=== PATIENT | male | born 1975 | race Caucasian/White ===

== ENCOUNTER 2016-08-02 07:06 | Emergency (ER) | payer BC ==
[2016-08-02 07:26] VITALS: BP 157/93; PULSE 82; RESP 18; TEMP 98.2; O2SAT 96
--- NOTE | 2016-08-02 07:32 | UCPHY ---
H & P Time Seen by Provider: 08/02/16 07:17 Patient Type: New HPI/ROS: 40-year-old male presents complaining of right knee pain for approximately 1 and half days. Has been under the weather for the last 1-2 weeks and on Sunday went for a longer hike. He does not recall injuring it on that day. He also recalls breaking very suddenly prior to his knee bothering him. Otherwise he does not recall any trauma to his knee. He has no history of arthritis he has no history of gout. He denies fevers or chills. Review of systems General no fever no chills no weakness HEENT no eye pain no eye discharge. No eye redness, no sore throat Respiratory no cough, no shortness of breath Cardiac no chest pain, no peripheral edema GI no abdominal pain, no diarrhea, no constipation, no nausea, no vomiting no flank pain, no hematuria, no dysuria Musculoskeletal no myalgias, positive joint pain Heme no easy bruising, no easy bleeding Endo no polyuria, no polydipsia Skin no rashes, no pruritus Neuro no syncope, no dizziness, no headaches Psych is no suicidal ideation, no homicidal ideation Past Medical/Surgical History: Hypertension Social History: Alcohol socially, denies drug use Smoking Status: Never smoked Physical Exam: 40-year-old male Alert and oriented in no acute distress nontoxic appearance, afebrile Atraumatic normocephalic Neck no JVD Lungs clear to auscultation, no respiratory distress Heart regular rate and rhythm Extremities no cyanosis clubbing edema Right knee-unable to fully extend, flexion able to flex past 90, no erythema no increased warmth Positive tenderness at anterior tibial line, no patellar ligament tenderness No laxity No calf tenderness, no calf swelling Constitutional: Initial Vital Signs Temperature (C) 36.8 C 08/02/16 07:20 Heart Rate 82 08/02/16 07:20 Respiratory Rate 18 08/02/16 07:20 Blood Pressure 157/93 H 08/02/16 07:20 O2 Sat (%) 96 08/02/16 07:20 O2 Delivery Mode Room Air Allergies/Adverse Reactions: No Known Allergies Allergy (Unverified 08/02/16 07:19) Home Medications: Medication Instructions Recorded Atenolol 08/02/16 Triamterene 03/08/17 Medical Decision Making ED Course/Re-evaluation: Patient seen and evaluated for right knee pain of approximately 1.5 days duration No gross trauma Right knee [id number] Differential diagnosis considered Knee sprain, knee arthritis, gout, internal derangement of the knee, DVT Impression Right knee sprain Unlikely arthritis secondary to no increased warmth and no erythema Unlikely DVT secondary to no calf tenderness and no calf swelling as well as no risk factors Plan Knee brace Ibuprofen Follow up with Ortho if not improving - Data Points Medications Given: Discontinued Medications Ibuprofen (Motrin) 800 mg PO EDNOW ONE Stop: 08/02/16 07:36 Last Admin: 08/02/16 08:02 Dose: 800 mg Departure - Departure Disposition: Home, Routine, Self-Care Clinical Impression: Right knee sprain Condition: Good Instructions: Knee Sprain (ED) Referrals: NONE *PRIMARY CARE P,. [Primary Care Provider] - As per Instructions Ervin Archibald MD [Medical Doctor] - As per Instructions - PQRS PQRS Measurement: na
[2016-08-02] MEDS ORDERED: IBUPROFEN 800 MG TAB PO ONE (07:35)
[2016-08-02] MEDS ORDERED: IBUPROFEN 200 MG TAB PO ONE (07:58)
[2016-08-02] MEDS ORDERED: IBUPROFEN 600 MG TAB PO ONE (07:59)
== END 2016-08-02 08:32 | disposition home or self-care (01) ==
LOC: CED 07:06
DX: S83.91XA Sprain of unspecified site of right knee, initial encounter (principal); X50.0XXA Overexertion from strenuous movement or load, initial encounter; Y93.01 Activity, walking, marching and hiking; I10 Essential (primary) hypertension
CPT/HCPCS: 73564-PO; 99203-PO; G0463-PO; L1810

== ENCOUNTER 2016-10-13 11:33 | Emergency (ER) | payer BC | END 2016-10-13 11:35 | disposition left against medical advice (07) | LOC: CED 11:33 | DX: Z53.21 Procedure and treatment not carried out due to patient leaving prior to being seen by health care provider (principal) ==